=== PATIENT | female | born 1960 | race Two or more races ===

== ENCOUNTER 2021-10-20 10:20 | Emergency (ER) | payer OTHER ==
[2021-10-20 10:34] VITALS: BP 162/83; PULSE 66; RESP 18; TEMP 98.3; BMI 30.9
== END 2021-10-20 12:02 | disposition home or self-care (01) ==
LOC: JERFT 10:20
DX: S62.339A Displaced fracture of neck of unspecified metacarpal bone, initial encounter for closed fracture (principal); W19.XXXA Unspecified fall, initial encounter; Y92.9 Unspecified place or not applicable
CPT/HCPCS: 73110-TC-RT-FY; 73130-TC-RT-FY; 73562-TC-RT-FY; 99284-25

== ENCOUNTER → 2023-06-29 | Day surgery (SDC) | payer OTHER | END | disposition home or self-care (01) | LOC: JRADIR 09:16 | PROVIDERS: ATTEND Internal Medicine Endocrinology, Diabetes & Metabolism | PROC: 0G9H3ZX Drainage of Right Thyroid Gland Lobe, Percutaneous Approach, Diagnostic (ICD-10-PCS; principal; 2023-06-29) | DX: E04.1 Nontoxic single thyroid nodule (principal) | CPT/HCPCS: 10005; 76942; 88173; 88305-TC ==

== ENCOUNTER → 2023-07-08 | Day surgery (SDC) | payer OTHER | END | disposition home or self-care (01) | LOC: JRADIR 09:30 → JRAD 09:30 | PROVIDERS: ATTEND Internal Medicine Endocrinology, Diabetes & Metabolism | PROC: 0G9G3ZX Drainage of Left Thyroid Gland Lobe, Percutaneous Approach, Diagnostic (ICD-10-PCS; principal; 2023-07-08) | DX: E04.1 Nontoxic single thyroid nodule (principal) | CPT/HCPCS: 10005; 76942; 88173; 88305-TC ==